=== PATIENT | male | born 1970 | race African-American/Black ===

== ENCOUNTER 2018-04-11 10:42 | Emergency (ER) | payer OTHER ==
[~2018-04-11] VITALS: Ht 185.4 cm; Wt 125.0 kg
[2018-04-11] MEDS ORDERED: HYDR25TA PO (10:46)
[2018-04-11] MEDS ORDERED: HYDROCODONE/ACETAMINOPHEN 10-325 MG TABLET PO ONE (11:30)
[2018-04-11 13:17] VITALS: BP 147/87
== END 2018-04-11 13:22 | disposition home or self-care (01) ==
LOC: EMS 10:43
DX: S82.391A Other fracture of lower end of right tibia, initial encounter for closed fracture (principal); S82.831A Other fracture of upper and lower end of right fibula, initial encounter for closed fracture; I10 Essential (primary) hypertension; F17.210 Nicotine dependence, cigarettes, uncomplicated; Z79.899 Other long term (current) drug therapy; W01.0XXA Fall on same level from slipping, tripping and stumbling without subsequent striking against object, initial encounter; Y93.89 Activity, other specified; Y92.098 Other place in other non-institutional residence as the place of occurrence of the external cause; Y99.8 Other external cause status
CPT/HCPCS: 29505